=== PATIENT | female | born 1995 | race Caucasian/White ===

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

== ENCOUNTER → 2017-07-16 | Day surgery (SDC) | payer BC ==
[2017-07-12 15:39] LABS: BASO % 0.3 %; BASO ABS # 0.02 K/uL (0-0.2); EOS % 0.7 %; EOS ABS # 0.05 K/uL (0-0.5); HEMATOCRIT 44.2 % (37-47); HEMOGLOBIN 15.2 g/dL (12.0-16.0); IG# 0.02 K/uL (0.00-0.02); LYMPH % 30.8 %; MEAN CELL VOLUME 90.9 fL (80-100); MEAN CORPUSCULAR HEMOGLOBIN 31.3 pg (25-34); MEAN CORPUSCULAR HGB CONC 34.4 g/dl (32-36); MONO % 8.5 %; MONO ABS # 0.58 K/uL (0.11-0.59); NEUT % 59.4 %; NEUT ABS # 4.05 K/uL (1.4-6.5); PLATELET COUNT 241 K/uL (130-400); RED CELL DISTRIBUTION WIDTH CV 13.2 % (11.5-14.5); RED CELL DISTRIBUTION WIDTH SD 43.5 fL (36.4-46.3); WHITE BLOOD COUNT 6.82 K/uL (4.8-10.8)
[2017-07-12 15:55] LABS: POTASSIUM 3.9 mmol/L (3.5-5.1); PTT PATIENT 24.1 SECONDS (21.0-31.0)
[2017-07-13 12:02] VITALS: Ht 167.6 cm; Wt 81.8 kg
[~2017-07-16] VITALS: Ht 167.6 cm; Wt 81.8 kg
[~2017-07-16] MED LIST: ACETAMINOPHEN/HYDROCODONE ELIX 15 ML/CUP UDP PO PRN; ATROPINE SULFATE 0.1 MG/ML 5ML SYR IV PRN; BACITRACIN/POLYMYXIN B OINT 90 APPLN/28.4 GM TUBE EXT ONE; DEXAMETHASONE SOD INJ 4 MG/ML VIAL ONE; EpHEDrine SULFATE INJ 50 MG/ML AMP IV PRN; FENTANYL CITRATE INJ 50 MCG/1 ML 2 ML VIAL ONE; FLUV100T12 PO; LACTATED RINGER'S 1000ML 1,000 ML IV SCH; LIDOCAINE 2% JELLY 5 ML TUBE EXT ONE; LIDOCAINE HCL 2% 2 ML VIAL (20MG/ML) ONE; MIDAZOLAM HCL 1 MG/ML 2ML VIAL ONE; ONDANSETRON INJ 2 MG/ML 2 ML VIAL IV PRN; ONDANSETRON INJ 2 MG/ML 2 ML VIAL ONE; PROPOFOL IV EMULSION 10 MG/ML 20 ML VIAL IV ONE; SCOPOLAMINE 1.5 MG TDSY TD ONE; SUCCINYLCHOLINE CHLORIDE 20 MG/ML 10 ML VIAL IV ONE
--- NOTE | 2017-07-16 11:26 | History & Physical Bridge - SC ---
H&P Re-Evaluation Bridge Note: I have examined the patient, reviewed the History & Physical and in the interval since the performance of the History & Physical I have noted the following changes of clinical significance: No changes noted
--- NOTE | 2017-07-16 12:07 | [facility] Operative Report ---
Operative Report Operative Date Jul 16, 2017. Pre-Operative Diagnosis Chronic Tonsillitis, Tonsillar Hypertrophy Post-Operative Diagnosis Same Procedure(s) Performed Tonsillectomy Surgeon Dr. Rollins Cooler Servicer Surgeon(s) None Estimated Blood Loss 5ML Findings 1. 3+ CRYPTIC TONSILS Specimens A. Right Tonsil B. Left Tonsil Anesthesia Type General I attest to the content of the Intraoperative Record and any orders documented therein. Any exceptions are noted below.
--- NOTE | 2017-07-16 12:09 | Discharge Instructions ---
Discharge Instructions Date of Service Jul 16, 2017. Admission Reason for Admission: Chronic Tonsillitis, Rec Acute Tonsillitis, Hypert Discharge Discharge Diagnosis / Problem: SAME Discharge Goals Goal(s): Therapeutic intervention Activity Recommendations Activity Limitations: as noted below LIGHT ACTIVITY FOR 2 WEEKS . Current Hospital Diet Patient's current hospital diet: Full Liquid Diet Discharge Diet Recommended Diet: Full Liquid Diet Diet Texture: Mechanical Soft (ground) Procedures Procedures Performed: Tonsillectomy Pending Studies Studies pending at discharge: no Medical Emergencies . Who to Call and When: Medical Emergencies: If at any time you feel your situation is an emergency, please call 911 immediately. . Non-Emergent Contact Non-Emergency issues call your: Surgeon . . "Provider Documentation" section prepared by Pawel Rollins. . VTE Core Measure Inpt VTE Proph given/why not?: SCD's
[2017-07-16] MEDS: FENTANYL CITRATE INJ 50 MCG/1 ML 2 ML VIAL IV PRN ×3 (12:25→12:41)
[2017-07-16 13:05] VITALS: TEMP 36.6
--- NOTE | 2017-07-16 13:46 | Anesthesia Progress Nt - [facility] ---
Anesthesia Post Op Note Date & Time Jul 16, 2017 at 13:46 Vital Signs Pain Intensity: 4 Vital Signs Past 12 Hours Date Time Temp Pulse Resp B/P (MAP) Pulse Ox O2 Delivery O2 Flow Rate FiO2 07/16/17 13:05 36.6 57 16 100/67 (78) 97 Room Air 07/16/17 12:47 36.8 61 13 113/71 99 Room Air 07/16/17 12:46 76 14 113/71 97 07/16/17 12:46 80 14 07/16/17 12:41 72 15 07/16/17 12:41 72 15 114/72 98 07/16/17 12:36 78 19 07/16/17 12:36 77 19 115/75 100 07/16/17 12:31 74 23 07/16/17 12:31 73 23 122/73 100 07/16/17 12:26 78 19 117/75 100 07/16/17 12:26 80 19 07/16/17 12:21 76 21 07/16/17 12:21 75 21 120/76 99 07/16/17 12:17 124/79 07/16/17 12:16 36.6 89 24 124/79 98 Humidified Oxygen 6 07/16/17 10:15 36.6 63 16 101/64 (76) 97 Room Air Notes Mental Status: alert / awake / arousable, participated in evaluation Pt Amnestic to Procedure: Yes Nausea / Vomiting: adequately controlled Pain: adequately controlled Airway Patency, RR, SpO2: stable & adequate BP & HR: stable & adequate Hydration State: stable & adequate Anesthetic Complications: no major complications apparent
[2017-07-16 13:50] VITALS: BP 112/77; PULSE 98; O2SAT 98
--- NOTE | 2017-07-16 13:54 | OPERATIVE REPORT ---
DATE OF OPERATION: 07/16/2017 PREOPERATIVE DIAGNOSIS: Recurrent acute and chronic tonsillitis. POSTOPERATIVE DIAGNOSIS: Recurrent acute and chronic tonsillitis. PROCEDURE: Bilateral tonsillectomy. SURGEON: Dr. Pawel Rollins. ANESTHESIA: General endotracheal. ESTIMATED BLOOD LOSS: 5 mL. FINDINGS: 1. Normal palate. 2. No evidence of adenoid tissue. 3. 3+ cryptic exophytic tonsils bilaterally. SPECIMENS: Right and left tonsil sent separately for permanent pathological assessment. COMPLICATIONS: None. INDICATIONS FOR THE PROCEDURE: The patient is a 21-year-old female with the above-mentioned history presents for the above-mentioned procedure on an outpatient elective basis. DESCRIPTION OF PROCEDURE: After informed consent had been obtained from the patient, the patient was wheeled to the operating room and placed on the operating table in the supine position. Monitors were placed. After induction of general endotracheal anesthesia, the table was turned 90 degrees and the patient's head and neck were gently extended. Antibiotic ointment was applied to the lips and a mouth gag was carefully inserted, opened, and stabilized on a roll of towels. The palate was inspected and found to be normal. A catheter was then inserted into the right nasal cavity and this was used to elevate the soft palate and uvula. A laryngeal mirror was used to inspect the nasopharynx and the intraoperative findings were no evidence of adenoid tissue. An Allis clamp was then used to grasp the right tonsil and the superior pole and Bovie electrocautery was used to remove the tonsil in the capsular plane with care to preserve the underlying mucosa and musculature of the anterior and posterior tonsillar pillars. The left tonsil was then removed in a similar fashion. Intraoperative findings were a 3+ cryptic endophytic tonsils bilaterally. These were sent separately for permanent pathological assessment. The mouth gag was then released for 1 minute. This was reopened and hemostasis was confirmed. An orogastric tube was placed and the stomach was suctioned free of air and stomach contents. 2% lidocaine jelly was placed into bilateral tonsillar fossae for added anesthetic effect. This marked the end of the case. The patient tolerated the procedure well. There were no apparent complications. The patient was extubated and transferred to recovery room in stable condition. I attest to the content of the Intraoperative Record and any orders documented therein. Any exception s are noted below.
== END | disposition home or self-care (01) ==
LOC: X.SURG 09:51
DX: J35.01 Chronic tonsillitis (principal); J03.91 Acute recurrent tonsillitis, unspecified; J34.2 Deviated nasal septum; J34.3 Hypertrophy of nasal turbinates; Z98.818 Other dental procedure status; Z82.49 Family history of ischemic heart disease and other diseases of the circulatory system